=== PATIENT | female | born 1985 ===

== ENCOUNTER 2018-10-02 14:34 | Emergency (ER) | payer MEDICAID ==
[~2018-10-02 14:34] MED LIST: NALOXONE HYDROCHLORIDE 0.4 MG/ML SOL IV ONE
[2018-10-02] MEDS ORDERED: NALOXONE HYDROCHLORIDE 0.4 MG/ML SOL ONE ×3 (14:38→15:41)
[2018-10-02] MEDS ORDERED: ETOMIDATE 2 MG/ML SOL IV ONE ×2 (14:48→14:50)
[2018-10-02] MEDS ORDERED: SUCCINYLCHOLINE CHLORIDE 20 MG/ML SOL IV ONE ×2 (14:49→14:50)
[2018-10-02] MEDS ORDERED: ROCURONIUM BROMIDE 10 MG/ML SOL IV ONE ×2 (14:53→14:55)
[2018-10-02 14:55] LABS: ABG PH 7.33 (7.35-7.45)
[2018-10-02 15:04] LABS: BASOPHILS % (AUTO) 1 % (0-3); EOSINOPHILS % (AUTO) 1 % (0-9); HEMATOCRIT 45 % (35-47); HEMOGLOBIN 14.8 gm/dl (12.0-15.5); LYMPHOCYTES % (AUTO) 27.9 % (10-50); MEAN CORPUSCULAR HGB CONC 32.5 gm/dl (32.0-36.0); MEAN CORPUSCULAR VOLUME 98 fL (81-99); NEUTROPHILS % (AUTO) 63.1 % (37-80)
[2018-10-02 15:06] LABS: APPEARANCE,URINE Slightly Cloudy; BILIRUBIN,URINE 1+ (NEGATIVE); COLOR,URINE Yellow; GLUCOSE, URINE (UA) NEGATIVE (NEGATIVE); KETONES,URINE 1+ (NEGATIVE); LEUKOCYTE ESTERASE ,URINE TRACE (NEGATIVE); NITRATE,URINE NEGATIVE (NEGATIVE); OCCULT BLOOD,URINE TRACE LYSED (NEG-TRACE); PH,URINE 5.5
[2018-10-02] MEDS ORDERED: MIDAZOLAM 2 MG/2 ML SOL IV PRN (15:11)
[2018-10-02] MEDS ORDERED: MIDAZOLAM 2 MG/2 ML SOL ONE (15:12)
[2018-10-02 15:14] LABS: BARBITUATES NEGATIVE (NEGATIVE); BENZODIAZEPINES NEGATIVE (NEGATIVE); CANNABINOL(THC) NEGATIVE (NEGATIVE); COCAINE(COC) NEGATIVE (NEGATIVE); METHADONE NEGATIVE (NEGATIVE); OPIATES(OPI) NEGATIVE (NEGATIVE); PROPOXYPHENE(PPX) NEGATIVE (NEGATIVE); TRICYCLIC ANTIDEPRESSANTS NEGATIVE (NEGATIVE)
[2018-10-02 15:15] LABS: AMPHETAMINES POSITIVE (NEGATIVE); METHAMPHETAMINES POSITIVE (NEGATIVE); OXYCODONE(OXY) NEGATIVE (NEGATIVE)
[2018-10-02 15:16] LABS: CALCIUM 8.3 mg/dl (8.5-10.1); CARBON DIOXIDE 24.3 mEq/L (21-32); CREATININE 0.82 mg/dl (0.60-1.00); POTASSIUM 3.7 mMol/L (3.5-5.1)
[2018-10-02] MEDS ORDERED: SODIUM CHLORIDE 0.9% 1000ML 1,000 ML IV ONE (15:19)
[2018-10-02 15:24] LABS: ICTOTEST,URINE NEGATIVE (NEGATIVE)
[2018-10-02 15:25] LABS: BACTERIA TRACE (< 1+); CRYSTALS NEGATIVE (0-3 AVE/HPF); RBC,URINE NEG (0-3AV/HPF)
[2018-10-02 15:28] VITALS: TEMP 95.8
[2018-10-02 15:31] VITALS: RESP 14
[2018-10-02 15:38] VITALS: BP 133/95; PULSE 78; O2SAT 98
== END 2018-10-02 15:50 | disposition short-term general hospital (02) | DRG 947 ==
LOC: EDBD 14:34 → ED 14:34
DX: R41.82 Altered mental status, unspecified (principal); J96.00 Acute respiratory failure, unspecified whether with hypoxia or hypercapnia; R78.9 Finding of unspecified substance, not normally found in blood; R40.2432 Glasgow coma scale score 3-8, at arrival to emergency department
CPT/HCPCS: 31500; 36415; 36600; 71045; 80048; 80305; 81001; 82803; 85025; 87077; 87088; 87186; 93005; 96365; 96374; 96375; 99291; J0330; J2250; J2310; A9270-GY; J3490